=== PATIENT | male | born 1965 | race Caucasian/White ===

== ENCOUNTER 2018-04-05 20:28 | Emergency (ER) | payer OTHER ==
[~2018-04-05] VITALS: Ht 175.3 cm; Wt 118.2 kg
[~2018-04-05 20:28] MED LIST: PRILOTC PO; ULTRAM 50MG TAB50 MG PO; ZESTRIL 20MG TA20 MG PO
[2018-04-05 20:31] VITALS: BP 141/80; TEMP 97.9
[2018-04-05 21:01] LABS: COLLECTION METHOD CLEAN CATCH
[2018-04-05 21:06] LABS: COLLECTION METHOD RANDOM VOIDED
[2018-04-05 21:12] LABS: MUCOUS Present /lpf; PH 5 (5-8); SQUAMOUS EPITHELIAL 0-2 /hpf; URINE APPEARANCE Clear; URINE BACTERIA None Seen /hpf; URINE BILIRUBIN Negative (NEGATIVE); URINE BLOOD Negative (NEGATIVE); URINE COLOR Yellow; URINE GLUCOSE Negative (NEGATIVE); URINE KETONE Negative (NEGATIVE); URINE LEUKOCYTE ESTERASE Negative (NEGATIVE); URINE NITRATE Negative (NEGATIVE); URINE PROTEIN(semi-quant) Negative (NEGATIVE); URINE RBC 0-2 /hpf; URINE UROBILINOGEN Negative (NEGATIVE); URINE WBC 0-2 /hpf
[2018-04-05 21:14] LABS: MUCOUS Present /lpf; PH 5 (5-8); SQUAMOUS EPITHELIAL None Seen /hpf; URINE APPEARANCE Clear; URINE BACTERIA None Seen /hpf; URINE BILIRUBIN Negative (NEGATIVE); URINE BLOOD Negative (NEGATIVE); URINE COLOR Yellow; URINE GLUCOSE Negative (NEGATIVE); URINE KETONE Negative (NEGATIVE); URINE LEUKOCYTE ESTERASE Negative (NEGATIVE); URINE NITRATE Negative (NEGATIVE); URINE PROTEIN(semi-quant) Negative (NEGATIVE); URINE RBC None Seen /hpf; URINE UROBILINOGEN Negative (NEGATIVE)
[2018-04-05 21:41] LABS: BASO % 0.5 % (0.0-2.0); EOS # 0.2 (0.0-0.7); EOS % 2.7 % (0-4.0); GRAN # 4.4 (1.4-6.5); GRAN % 59.7 % (42.2-75.2); HEMATOCRIT 37.7 % (42.0-52.0); LYMPH # 2.1 (1.2-3.4); LYMPH % 28.8 % (20.0-51.0); MEAN CELL VOLUME 85 fl (80.0-100.0); MEAN CORPUSCULAR HEMOGLOBIN 29 pg (27.0-31.0); MEAN CORPUSCULAR HGB CONC 35 g/dl (33.0-37.0); MEAN PLATELET VOLUME 9.9 fl (7.4-10.4); MONO # 0.6 (0.1-0.6); MONO % 7.9 % (1.7-9.3); PLATELET COUNT 214 K/mm3 (130-400); RED BLOOD COUNT 4.45 M/mm3 (4.20-5.60); REDCELL DISTRIBUTION WIDTH-CV 13.2 % (11.5-14.5)
[2018-04-05 21:51] LABS: BILIRUBIN,TOTAL 0.5 mg/dL (0.0-1.0); CALCIUM 9.6 mg/dL (8.4-10.2); CREATININE, serum 1.11 mg/dL (0.66-1.25); POTASSIUM 3.6 mmol/L (3.4-5.0); TOTAL PROTEIN 7.1 gm/dL (6.4-8.2)
[2018-04-05] MEDS ORDERED: PRINZIDE 12.5 M1 TA1 PO (22:54)
[2018-04-05] MEDS ORDERED: PRINZIDE 25 MG-1 TAB PO (22:55)
[2018-04-05] MEDS ORDERED: ASPIRIN 81M81 MG/TA2 PO (22:55)
[2018-04-06] MEDS ORDERED: NORCO 325 MG-51 TAB PO (00:26)
[2018-04-06 00:52] VITALS: PULSE 87
== END 2018-04-06 01:13 | disposition home or self-care (01) ==
LOC: COL.ER 20:28
PROVIDERS: Emergency Medicine; Physician Assistant
DX: I86.1 Scrotal varices (principal); I10 Essential (primary) hypertension; K21.9 Gastro-esophageal reflux disease without esophagitis; J45.909 Unspecified asthma, uncomplicated; Z79.82 Long term (current) use of aspirin
CPT/HCPCS: J1170; J3010; Q9967

== ENCOUNTER → 2018-08-03 | Outpatient (CLI) | payer OTHER ==
[~2018-08-03] MED LIST changes: +ASPIRIN 81M81 MG/TA2 PO; +NORCO 325 MG-51 TAB PO; +PRINZIDE 12.5 M1 TA1 PO; +PRINZIDE 25 MG-1 TAB PO
== END ==
LOC: COL.RAD 08:15
DX: M48.061 Spinal stenosis, lumbar region without neurogenic claudication (principal); M54.16 Radiculopathy, lumbar region

== ENCOUNTER 2019-04-10 22:42 | Emergency (ER) | payer OTHER ==
[~2019-04-10] VITALS: Ht 175.3 cm; Wt 118.2 kg
[2019-04-10 23:02] VITALS: TEMP 98.1
[2019-04-11] MEDS ORDERED: NORCO 325 MG-51 TAB PO (00:24)
[2019-04-11 00:34] VITALS: BP 120/76; PULSE 75
== END 2019-04-11 00:34 | disposition home or self-care (01) ==
LOC: COL.ER 22:42
DX: M54.5 Low back pain (principal); G89.29 Other chronic pain; Z79.82 Long term (current) use of aspirin
CPT/HCPCS: J2270; J2360

== ENCOUNTER 2019-08-18 07:40 | Day surgery (SDC) | payer OTHER ==
[2019-08-18] VITALS (17 sets, daily range): BP systolic 112–133; BP diastolic 56–77; PULSE 62–92; TEMP 98.1–98.3
[~2019-08-18] VITALS: Ht 175.4 cm; Wt 117.0 kg
[~2019-08-18 07:40] MED LIST changes: +00186-0370-20 IH; +ASPI325T6 PO; +LIPITOR 10MG10 MG PO; +NEURONTIN300 MG/CAP PO; +OMEGA-3 1000 MG1 CAP PO; +PROZAC 10MG10 MG PO; +TRULICITY0.75 MG/0. SQ; +ZANAFLEX CAPSULE2 MG PO
[2019-08-18 08:06] LABS: HEMATOCRIT 39.2 % (42.0-52.0); HEMOGLOBIN 13.2 g/dl (13.5-18.0); MEAN CELL VOLUME 85 fl (80.0-100.0); MEAN CORPUSCULAR HEMOGLOBIN 29 pg (27.0-31.0); MEAN CORPUSCULAR HGB CONC 34 g/dl (33.0-37.0); MEAN PLATELET VOLUME 10.5 fl (7.4-10.4); PLATELET COUNT 176 K/mm3 (130-400); RED BLOOD COUNT 4.63 M/mm3 (4.20-5.60); REDCELL DISTRIBUTION WIDTH-CV 12.7 % (11.5-14.5)
[2019-08-18 08:08] LABS: INR 1.1 (0.8-3.0); PROTHROMBIN TIME 12.1 SECONDS (9.7-12.8)
[2019-08-18 08:11] LABS: PARTIAL THROMBOPLASTIN TIME 32.7 SECONDS (26.0-37.0)
[2019-08-18 08:16] LABS: CALCIUM 8.8 mg/dL (8.4-10.2); CREATININE, serum 0.86 (0.66-1.25); POTASSIUM 3.9 mmol/L (3.4-5.0)
--- NOTE | 2019-08-18 09:12 | NUR ---
SEE MEREGABRIEL FOR ALL MEDICATION ADMIN TIMES AND INTRA AND POST SEDATION
--- NOTE | 2019-08-18 10:30 | NUR ---
Back from cardiac catheterization technologist by bed. Drowsy but oriented. Right Tband with 13 cc air CD&I. VSS. bedside
--- NOTE | 2019-08-18 15:48 | NUR ---
TR band removed at this time and bandaid placed. Pt denies any pain or concerns. Will continue to follow.
--- NOTE | 2019-08-18 19:13 | NUR ---
Report given to Lory INMAN and care transfered.
--- NOTE | 2019-08-18 19:15 | NUR ---
REPORT RECIVED FROM STORM CLARK.
[2019-08-19] VITALS: BP 110/61; PULSE 56; TEMP 98
[2019-08-19 04:00] VITALS: BP 118/76; PULSE 68; TEMP 97.8
[2019-08-19 06:41] LABS: BASO % 0.4 % (0.0-2.0); EOS # 0.3 (0.0-0.7); EOS % 3.3 % (0-4.0); GRAN # 5.1 (1.4-6.5); GRAN % 66.9 % (42.2-75.2); HEMATOCRIT 39.7 % (42.0-52.0); HEMOGLOBIN 13.5 g/dl (13.5-18.0); LYMPH # 1.6 (1.2-3.4); LYMPH % 21.6 % (20.0-51.0); MEAN CELL VOLUME 85 fl (80.0-100.0); MEAN CORPUSCULAR HEMOGLOBIN 29 pg (27.0-31.0); MEAN CORPUSCULAR HGB CONC 34 g/dl (33.0-37.0); MEAN PLATELET VOLUME 10.2 fl (7.4-10.4); MONO # 0.6 (0.1-0.6); MONO % 7.4 % (1.7-9.3); PLATELET COUNT 195 K/mm3 (130-400); RED BLOOD COUNT 4.69 M/mm3 (4.20-5.60); REDCELL DISTRIBUTION WIDTH-CV 12.7 % (11.5-14.5)
[2019-08-19 06:46] LABS: CALCIUM 9.1 mg/dL (8.4-10.2); CREATININE, serum 0.88 (0.66-1.25); POTASSIUM 4.2 mmol/L (3.4-5.0)
--- NOTE | 2019-08-19 07:12 | NUR ---
REPORT GIVEN TO STORM COLUNGA.
--- NOTE | 2019-08-19 07:12 | NUR ---
Report recieved from STORM Henley. Patient resting in bedside recliner with call light within reach. Right radial site without complication. Care assumed.
[2019-08-19 08:58] VITALS: BP 125/69; BP 129/65; PULSE 88; TEMP 97.9
--- NOTE | 2019-08-19 10:50 | NUR ---
Dr. Wu rounds at this time. Orders to DC home as entered CPOE.
[2019-08-19] MEDS ORDERED: ASPIRIN E.C. 8181 MG PO (10:52)
[2019-08-19] MEDS ORDERED: BRILINTA90 MG PO (10:52)
--- NOTE | 2019-08-19 11:36 | NUR ---
Patient dresses himself in own clothing, INT IV is discontinued, discharge education provided with understanding verbalized.
--- NOTE | 2019-08-19 11:38 | NUR ---
Patient DC via ambulatory to ED entrance where waits with POC.
== END 2019-08-19 11:38 ==
LOC: COL.CAR 07:40 → IMCU 16:35 → COL.CAR 08-19 11:38
PROVIDERS: Internal Medicine Cardiovascular Disease
DX: I25.110 Atherosclerotic heart disease of native coronary artery with unstable angina pectoris (principal); I10 Essential (primary) hypertension; E78.5 Hyperlipidemia, unspecified; E11.9 Type 2 diabetes mellitus without complications; J45.909 Unspecified asthma, uncomplicated; M47.817 Spondylosis without myelopathy or radiculopathy, lumbosacral region; G47.33 Obstructive sleep apnea (adult) (pediatric); Z79.82 Long term (current) use of aspirin; Z79.899 Other long term (current) drug therapy; Z79.84 Long term (current) use of oral hypoglycemic drugs; Z87.891 Personal history of nicotine dependence; Z88.1 Allergy status to other antibiotic agents
CPT/HCPCS: OP; C1769; C1874; C1887; C9600; J0583; J1644; J2250; J3010; Q9967

== ENCOUNTER → 2019-08-26 | Outpatient (CLI) | payer OTHER ==
[~2019-08-26] MED LIST changes: +ASPIRIN E.C. 8181 MG PO; +BRILINTA90 MG PO
== END ==
LOC: COL.RAD 08-17 11:00
DX: M48.061 Spinal stenosis, lumbar region without neurogenic claudication (principal); Z98.1 Arthrodesis status

== ENCOUNTER → 2019-09-30 | Outpatient (RCR) | payer OTHER | END | disposition home or self-care (01) | LOC: WSPT | DX: M48.00 Spinal stenosis, site unspecified (principal); M43.16 Spondylolisthesis, lumbar region; M43.8X9 Other specified deforming dorsopathies, site unspecified; M62.830 Muscle spasm of back | CPT/HCPCS: G0283-GP ==

== ENCOUNTER 2019-12-03 15:34 | Outpatient (RCR) | payer OTHER | END 2019-12-06 16:26 | disposition home or self-care (01) | LOC: COL.CR 15:34 | DX: Z48.812 Encounter for surgical aftercare following surgery on the circulatory system (principal); Z95.5 Presence of coronary angioplasty implant and graft ==

== ENCOUNTER 2019-12-27 16:15 | Outpatient (RCR) | payer OTHER | END 2020-01-02 | disposition home or self-care (01) | LOC: WSPT | DX: M48.00 Spinal stenosis, site unspecified (principal); M43.10 Spondylolisthesis, site unspecified ==

== ENCOUNTER 2020-02-08 11:15 | Outpatient (RCR) | payer OTHER | END 2020-02-21 | disposition home or self-care (01) | LOC: WSPT | DX: M48.00 Spinal stenosis, site unspecified (principal) ==

== ENCOUNTER 2020-03-01 13:45 | Outpatient (RCR) | payer OTHER | END 2020-05-23 | disposition home or self-care (01) | LOC: WSPT | DX: M48.00 Spinal stenosis, site unspecified (principal); M43.10 Spondylolisthesis, site unspecified ==

== ENCOUNTER 2020-06-29 08:21 | Outpatient (RCR) | payer OTHER | END 2020-06-30 09:48 | disposition home or self-care (01) | LOC: WSPT 08:21 | DX: M48.00 Spinal stenosis, site unspecified (principal); M43.10 Spondylolisthesis, site unspecified ==

== ENCOUNTER → 2020-11-28 | Outpatient (CLI) | payer OTHER | LOC: MHCPAIN 12:27 | DX: M47.812 Spondylosis without myelopathy or radiculopathy, cervical region (principal); M54.12 Radiculopathy, cervical region; G89.29 Other chronic pain | CPT/HCPCS: G0463 ==

== ENCOUNTER → 2020-12-14 | Outpatient (CLI) | payer OTHER | LOC: MHCPAIN 07:40 | DX: M47.812 Spondylosis without myelopathy or radiculopathy, cervical region (principal); M54.12 Radiculopathy, cervical region; M54.2 Cervicalgia | CPT/HCPCS: J1100; Q9967 ==

== ENCOUNTER → 2021-01-02 | Outpatient (CLI) | payer OTHER | LOC: MHCPAIN 14:49 | DX: M47.812 Spondylosis without myelopathy or radiculopathy, cervical region (principal); M54.2 Cervicalgia; G89.29 Other chronic pain | CPT/HCPCS: G0463 ==

== ENCOUNTER 2022-06-17 07:21 | Day surgery (SDC) | payer OTHER ==
[~2022-06-17] VITALS: Ht 175.3 cm; Wt 122.7 kg
[~2022-06-17 07:21] MED LIST changes: +CENTRUM SILVER1 TAB PO; +FLOMAX 0.40.4 MG/CAP PO; +NATURAL E400 IU PO; +NATURE'S BLEND100 M2 PO; +PROAIR HFA0.09 MG/AC IH; +REPATHA SU140 MG/1 M SQ; +VITAMINC1000TA PO; +WIXELA IH
[2022-06-17] MEDS ORDERED: AMBIEN 5MG TABLE5 MG PO (07:52)
[2022-06-17] MEDS ORDERED: PRINZIDE 12.5 M1 TAB PO (07:52)
[2022-06-17 08:03] VITALS: BP 141/75; PULSE 69; TEMP 97.6
[2022-06-17 09:15] VITALS: BP 110/61; PULSE 69; TEMP 97.5
[2022-06-17 09:30] VITALS: BP 125/72; PULSE 62
[2022-06-17 09:45] VITALS: BP 131/74; PULSE 58
--- NOTE | 2022-06-17 10:17 | NUR ---
0915: PATIENT TO BAY 3 PER CART FROM ENDO SUITE. PATIENT AMBULATED FROM CART TO RECLINER X2 ASSIST. REPORT RECEIVED FROM ENDO RN. PATIENT ALERT AND ORIENTED. VS OBTAINED AND STABLE. BREATHING EVEN AND UNLABORED. DR. AMOS SPOKE WITH PATIENT IN ENDO SUITE. PATIENT REQUESTING APPLESAUCE AND DIET SODA. PATIENT DENIES ANY NAUSEA AT THIS TIME. PATIENT RESTING IN RECLINER. DAUGHTER PAUL IN ROOM. CALL LIGHT IN REACH. 0930: VS REMAIN STABLE. PATIENT TOLERATING APPLESAUCE AND SODA. PATIENT HAS NO C/O OF NAUSEA OR DISCOMFORT. RESTING IN RECLINER. DAUGHTER IN ROOM. CALL LIGHT IN REACH. 0945: VS REMAIN STABLE. PATIENT DENIES ANY NAUSEA OR DISCOMFORT. RESTING IN RECLINER. DAUGHTER REMAINS AT SIDE. CALL LIGHT IN REACH. 0950: DISCHARGE EDUCATION COMPLETED AT THIS TIME. PATIENT STATED UNDERSTANDING OF INSTRUCTIONS AND HAS NO QUESTIONS AT THIS TIME. DISCHARGE PAPERWORK GIVEN TO PATIENT. IV DC'D AT THIS TIME. PATIENT DENIES ANY ASSISTANCE WITH DRESSING. 1000: PATIENT AMBULATED WITH STEADY GAIT FROM RECLINER TO WHEELCHAIR. PATIENT OFF UNIT VIA WHEELCHAIR. PATIENT DISCHARGED TO HOME WITH DAUGHTER PER PERSONAL VEHICLE.
== END 2022-06-17 10:00 | disposition home or self-care (01) ==
LOC: SDCO 07:21
DX: Z12.11 Encounter for screening for malignant neoplasm of colon (principal); D12.3 Benign neoplasm of transverse colon; G47.33 Obstructive sleep apnea (adult) (pediatric); K21.9 Gastro-esophageal reflux disease without esophagitis; Z99.81 Dependence on supplemental oxygen; Z87.891 Personal history of nicotine dependence
CPT/HCPCS: J2250; J2704